=== PATIENT | male | born 1965 | race American Indian/Alaskan Native ===

== ENCOUNTER 2018-12-16 07:11 | Emergency (ER) | payer OTHER ==
[~2018-12-16] VITALS: Ht 165.1 cm; Wt 81.6 kg
== END 2018-12-16 09:37 | disposition home or self-care (01) ==
LOC: ER 07:11
DX: S43.492A Other sprain of left shoulder joint, initial encounter (principal); W22.8XXA Striking against or struck by other objects, initial encounter; Y93.89 Activity, other specified; Y92.59 Other trade areas as the place of occurrence of the external cause; Y99.8 Other external cause status